=== PATIENT | male | born 1955 | race Caucasian/White ===

== ENCOUNTER 2017-06-24 10:00 | Emergency (ER) | payer OTHER ==
[~2017-06-24] VITALS: Ht 157.5 cm; Wt 80.0 kg
[2017-06-24] MEDS ORDERED: [UNRECOGNIZED DRUG - REMARK] PO (10:11)
[2017-06-24] MEDS ORDERED: [UNRECOGNIZED DRUG - REMARK] PO (10:11)
[2017-06-24] MEDS ORDERED: OxyCODONE HCL/ACETAMINOPHEN 5-325 MG TABLET PO ONE (15:15)
[2017-06-24] MEDS ORDERED: PERTUSS(ACELL),DIPH,TET VAC/PF 0.5 ML VIAL IM ONE (15:45)
[2017-06-24 16:32] VITALS: BP 150/62
== END 2017-06-24 16:35 | disposition home or self-care (01) ==
LOC: EMS 10:04
DX: S82.892A Other fracture of left lower leg, initial encounter for closed fracture (principal); S00.12XA Contusion of left eyelid and periocular area, initial encounter; E11.9 Type 2 diabetes mellitus without complications; I10 Essential (primary) hypertension; Z79.899 Other long term (current) drug therapy; W18.39XA Other fall on same level, initial encounter; Y93.89 Activity, other specified; Y92.89 Other specified places as the place of occurrence of the external cause; Y99.8 Other external cause status
CPT/HCPCS: 29515; 90471; 90715; 99284